=== PATIENT | female | born 1985 | race Caucasian/White ===

== ENCOUNTER 2016-12-27 11:44 | Emergency (ER) | payer OTHER ==
--- NOTE | 2016-12-27 12:34 | UC ---
Abdominal Pain Female HPI - HPI Summary HPI Summary: nausea, vomiting and diarrhea began at 2pm last night, has felt light headed from time to time voiding qs---no fevers - History of Current Complaint Chief Complaint: UCGeneralIllness Stated Complaint: FLU SXS Time Seen by Provider: 12/27/16 12:33 Hx Obtained From: Patient Hx Last Menstrual Period: 12/16/16 ?: No Onset/Duration: Sudden Onset, Lasting Hours, Still Present Timing: Constant Severity Initially: Moderate Severity Currently: Moderate Pain Intensity: 5 Pain Scale Used: 0-10 Numeric Location: Diffuse Radiates: No Character: Cramping Aggravating Factor(s): Food Alleviating Factor(s): Position Associated Signs and Symptoms: Positive: Decreased Appetite, Nausea, Vomiting, Diarrhea. Negative: Urinary Symptoms, Vaginal Bleeding Allergies/Adverse Reactions: Allergies Allergy/AdvReac Type Severity Reaction Status Date / Time Moxifloxacin [From Avelox] Allergy Severe Swelling Verified 12/27/16 11:56 Of Face,Lips,& Throat Doxycycline Allergy Intermediate GI Upset Verified 12/27/16 11:56 Tramadol Allergy Intermediate GI Upset Verified 12/27/16 11:56 Home Medications: Home Medications Ergocalciferol [Vitamin D2] 50,000 unit PO WEEKLY 12/27/16 [History Confirmed ] FLUoxetine CAP* [Prozac CAP*] 20 mg PO DAILY 12/27/16 [History Confirmed ] Losartan TAB* [Cozaar TAB*] 25 mg PO DAILY 12/27/16 [History Confirmed 12/27/16] Meloxicam 7.5 mg PO DAILY 12/27/16 [History Confirmed 12/27/16] Nexplanon 1 implant IMPLANT SEE INSTRUCTIONS 12/27/16 [History Confirmed ] Terbinafine HCl 250 mg PO DAILY 12/27/16 [History Confirmed 12/27/16] PMH/Surg Hx/FS Hx/Imm Hx Previously Healthy: No - raynauds Psychological History Of: Reports: Depression - Surgical History Surgical History: Yes Surgery Procedure, Year, and Place: laparoscopy 2002, endometriosis surgery - Family History Known Family History: Positive: None Family History: dneies cardiovascular issues in family lineage - Social History Occupation: Unemployed Lives: With Family Alcohol Use: None Substance Use Type: None Smoking Status (MU): Heavy Every Day Tobacco Smoker Type: Cigarettes Amount Used/How Often: 1/2 PPD Length of Time of Smoking/Using Tobacco: 15 years Have You Smoked in the Last Year: Yes Cessation Counseling: Patient Advised to Stop Review of Systems Constitutional: Negative Skin: Negative Eyes: Negative ENT: Negative Respiratory: Negative Cardiovascular: Negative Gastrointestinal: Abdominal Pain, Vomiting, Diarrhea Genitourinary: Negative Motor: Negative Neurovascular: Negative Musculoskeletal: Arthralgia, Myalgia Neurological: Negative Psychological: Negative All Other Systems Reviewed And Are Negative: Yes Physical Exam Triage Information Reviewed: Yes Appearance: Well-Nourished, Ill-Appearing - mild, Pain Distress - mild Vital Signs: Initial Vital Signs Temp 98.1 F 12/27/16 11:58 Pulse 96 12/27/16 11:58 Resp 16 12/27/16 11:58 BP 115/57 12/27/16 11:58 Pulse Ox 99 12/27/16 11:58 Vital Signs Reviewed: Yes Eye Exam: Normal Eyes: Positive: Conjunctiva Clear ENT Exam: Normal ENT: Positive: Normal ENT inspection, Hearing grossly normal, Pharynx normal, TMs normal. Negative: Nasal congestion, Nasal drainage, Tonsillar swelling, Tonsillar exudate, Trismus, Muffled/hoarse voice Dental Exam: Normal Neck exam: Normal Neck: Positive: Supple, Nontender, No Lymphadenopathy Respiratory Exam: Normal Respiratory: Positive: Chest non-tender, Lungs clear, Normal breath sounds, No respiratory distress, No accessory muscle use Cardiovascular Exam: Normal Cardiovascular: Positive: RRR, No Murmur, Pulses Normal, Brisk Capillary Refill Abdominal Exam: Normal Abdomen Description: Positive: Nontender, No Organomegaly, Soft. Negative: CVA Tenderness (R), CVA Tenderness (L), Distended, Guarding, Hepatomegaly, McBurney' s Point Tenderness, Peritoneal Signs Bowel Sounds: Positive: Present Musculoskeletal Exam: Normal Musculoskeletal: Positive: Strength Intact, ROM Intact, No Edema Neurological Exam: Normal Neurological: Positive: Alert, Muscle Tone Normal Psychological Exam: Normal Skin Exam: Normal Abd Pain Female Course/Dx - Course Course Of Treatment: zofran, increase fluids, advance diet slowly, follow with pcp - Differential Dx/Diagnosis Differential Diagnosis: Diverticulitis, Irritable Bowel Syndrome, Renal Colic, Urinary Tract Infection, Other - acute nausea, vomiting and diarrhea Provider Diagnoses: Acute nausea, vomiting and diarrhea,,nicotine dependant Discharge - Discharge Plan Condition: Stable Disposition: HOME Prescriptions: Ondansetron ODT TAB* [Zofran 4 MG Odt TAB*] 4 mg PO Q6H PRN #4 tab.odt PRN Reason: nausea/vomiting Patient Education Materials: Acute Nausea and Vomiting (ED), Acute Diarrhea (ED ), Nutrition Tips for Relief of Diarrhea (ED) Referrals: Mackenzie De Guzman NP [Primary Care Provider] - 3 Days
[2016-12-27] MEDS ORDERED: Ondansetron ODT TAB* 4 MG PO ONE (13:43)
[2016-12-27 14:11] VITALS: BP 123/69
== END 2016-12-27 14:31 | disposition home or self-care (01) ==
LOC: UCCORT 11:44
DX: R11.2 Nausea with vomiting, unspecified (principal); R19.7 Diarrhea, unspecified; R10.9 Unspecified abdominal pain; Z32.02 Encounter for pregnancy test, result negative; I73.00 Raynaud's syndrome without gangrene; F32.9 Major depressive disorder, single episode, unspecified; Z88.1 Allergy status to other antibiotic agents; Z88.5 Allergy status to narcotic agent; F17.210 Nicotine dependence, cigarettes, uncomplicated
CPT/HCPCS: 81003; 84702; 87086; 87502; 99203; G0463